=== PATIENT | female | born 1970 | race Hispanic/Latino ===

== ENCOUNTER 2020-07-07 14:11 | Emergency (ER) | payer OTHER, BC ==
[~2020-07-07] VITALS: Ht 167.6 cm; Wt 80.0 kg
[2020-07-07] MEDS ORDERED: NAPROXEN500 MG PO (15:32)
[2020-07-07 15:48] VITALS: BP 112/58
== END 2020-07-07 15:48 | disposition home or self-care (01) | DRG 563 ==
LOC: ED 14:11
DX: S43.402A Unspecified sprain of left shoulder joint, initial encounter (principal); S60.222A Contusion of left hand, initial encounter; S60.221A Contusion of right hand, initial encounter; F17.210 Nicotine dependence, cigarettes, uncomplicated; X50.0XXA Overexertion from strenuous movement or load, initial encounter; X50.9XXA Other and unspecified overexertion or strenuous movements or postures, initial encounter; Y93.89 Activity, other specified; Y92.89 Other specified places as the place of occurrence of the external cause; Y99.0 Civilian activity done for income or pay

== ENCOUNTER 2022-06-10 10:01 | Day surgery (SDC) | payer BC ==
[~2022-06-10 10:01] MED LIST: FLUCONAZOLE150 MG PO; NAPROXEN500 MG PO; TRAZODONE50 MG PO
[2022-06-10 14:07] VITALS: BP 122/73
== END 2022-06-10 11:59 | disposition home or self-care (01) | DRG 951 ==
LOC: ENDO 10:01
PROVIDERS: ATTEND Internal Medicine Gastroenterology
PROC: 0DBP8ZX Excision of Rectum, Via Natural or Artificial Opening Endoscopic, Diagnostic (ICD-10-PCS; principal; 2022-06-10)
DX: Z12.11 Encounter for screening for malignant neoplasm of colon (principal); K62.1 Rectal polyp; K57.30 Diverticulosis of large intestine without perforation or abscess without bleeding

== ENCOUNTER 2024-05-05 00:03 | Emergency (ER) | payer OTHER ==
[~2024-05-05 00:03] MED LIST changes: +ASPIRIN81 MG PO; +ATORVASTATIN CA40 MG PO; +KETOROLAC15 MG/ML IV; +PROCHLORPERAZINE IV; +TYLENOL500 MG PO; +[UNRECOGNIZED DRUG - REMARK]
== END 2024-05-05 00:27 | disposition left against medical advice (07) | DRG 951 ==
LOC: ED 00:03 → LWOBS 00:27
DX: Z53.21 Procedure and treatment not carried out due to patient leaving prior to being seen by health care provider (principal)